=== PATIENT | female | born 1985 | race Caucasian/White ===

== ENCOUNTER → 2016-10-01 | Outpatient (CLI) | payer OTHER ==
--- NOTE | 2016-10-01 10:05 | RAD ---
Foot radiograph 10/01/2016 Indication: Left foot pain. Comparison: None. Findings: There is a mildly displaced oblique fracture of the fifth metatarsal shaft. Joint spaces are maintained. There is a bipartite medial first metatarsal sesamoid, a normal variant. There is mild soft tissue swelling at the lateral aspect of the mid and forefoot. Impression: Mildly displaced oblique fifth metatarsal shaft fracture.
== END | disposition home or self-care (01) ==
LOC: DXRADRC 09:33
PROVIDERS: ATTEND General Practice
DX: S92.202A Fracture of unspecified tarsal bone(s) of left foot, initial encounter for closed fracture (principal); X58.XXXA Exposure to other specified factors, initial encounter; Y93.89 Activity, other specified; Y92.89 Other specified places as the place of occurrence of the external cause; Y99.8 Other external cause status
CPT/HCPCS: 73630

== ENCOUNTER → 2016-10-25 | Outpatient (CLI) | payer OTHER ==
--- NOTE | 2016-10-25 08:30 | RAD ---
Left foot, 3 views, 10/25/2016: History: Follow-up fracture Comparison is made to a study from 10/01/2016. The fracture of the distal fifth metatarsal is unchanged in position with only slight medial displacement of the distal fracture fragment. No significant angulation is evident. No callus formation is seen. No new fracture or dislocation is evident. IMPRESSION: Stable left fifth metatarsal fracture.
== END | disposition home or self-care (01) ==
LOC: DXRADRC 08:03
PROVIDERS: ATTEND Orthopaedic Surgery Sports Medicine
DX: S92.352D Displaced fracture of fifth metatarsal bone, left foot, subsequent encounter for fracture with routine healing (principal); X58.XXXD Exposure to other specified factors, subsequent encounter
CPT/HCPCS: 73630

== ENCOUNTER → 2019-01-19 | Outpatient (CLI) | payer OTHER ==
--- NOTE | 2019-01-20 13:42 | RAD ---
EXAM: Right foot, 2 views. HISTORY: Pain. COMPARISON: None. FINDINGS: 2 views of the right foot are obtained. There is no fracture, dislocation or subluxation. There is ossicle between the bases of the first and second metatarsals consistent with an os intermetatarseum. IMPRESSION: No acute osseous finding. Electronically signed by: Jeannette Cota MD (01/20/2019 1:38 PM) [id number]
== END | disposition home or self-care (01) ==
LOC: PMG 17:13
PROVIDERS: ATTEND Registered Nurse
DX: M79.671 Pain in right foot (principal)
CPT/HCPCS: 73620